=== PATIENT | female | born 1995 | race Caucasian/White ===

== ENCOUNTER 2018-01-12 05:11 | Emergency (ER) | payer OTHER ==
[~2018-01-12] VITALS: Ht 160 cm; Wt 77.1 kg
[~2018-01-12 05:11] MED LIST: AMOXICILLI400 MG/5 M PO; APAP/CODEINE ELI5 M1 PO; BACTRIM DS TAB1 EACH PO; COLACE100 MG; DARVOCET-N 1001 EACH PO; IBUPROFEN 800800 M1; IBUPROFEN 800800 M1 PO; IRON325; KEFLEX500 MG PO; MACROBID 100 M100 M1 PO; NOHOMEMEDICATIONS; PREDNISONE 20 M20 M1 PO; PYRIDIUM200 MG PO; TRINATE TABLET1 TAB; TYLENOL COLD &1 EACH PO; VENTOLIN HFA 1818 GM INH; ZOFRAN ODT4 MG PO; ZPAK PO; depo provera
[2018-01-12 05:55] LABS: ABSOLUTE BASOPHILS 0.1 thou/uL (0.0-0.2); ABSOLUTE EOSINOPHILS 0.4 thou/uL (0.0-0.7); ABSOLUTE LYMPHOCYTES 4.4 thou/uL (0.8-5.3); ABSOLUTE MONOCYTES 0.7 thou/uL (0.0-1.2); ABSOLUTE NEUTROPHILS 4.8 thou/uL (1.6-8.1); BASOPHILS 1.3 %; EOSINOPHILS 3.4 %; HEMATOCRIT 41.7 % (37.0-47.0); HEMOGLOBIN 13.6 gm/dL (12.0-15.0); LYMPHOCYTES 42.5 %; MCH 28.3 pg (26.0-34.0); MCHC 32.6 g/dL (28.0-37.0); MCV 86.7 fL (80.0-100.0); MONOCYTES 6.4 %; MPV 8.5 fl. (7.2-11.1); NUCLEATED RBCS 0 /100WBC; PLATELET COUNT* 222 thou/uL (150-400); POLYS 46.4 %; RBC 4.81 mil/uL (4.20-5.00); RDW-CV 14.3 % (10.5-14.5); WBC 10.2 thou/uL (4.0-11.0)
[2018-01-12 06:02] LABS: CALCIUM 8.7 mg/dL (8.5-10.1); CREATININE 0.8 mg/dL (0.6-1.3)
[2018-01-12 06:06] LABS: ALBUMIN 3.5 g/dL (3.4-5.0); TOTAL BILIRUBIN 0.2 mg/dL (<0.1-1.0)
[2018-01-12] MEDS ORDERED: MEDROLDOSEPACK PO (07:33)
[2018-01-12] MEDS ORDERED: OTHER MISCELL (07:37)
[2018-01-12 07:56] VITALS: BP 99/58
== END 2018-01-12 07:57 | disposition home or self-care (01) ==
LOC: M.ERS 05:11
PROVIDERS: Emergency Medicine Emergency Medical Services
DX: R20.0 Anesthesia of skin (principal); R20.2 Paresthesia of skin; F17.210 Nicotine dependence, cigarettes, uncomplicated; Z87.440 Personal history of urinary (tract) infections